=== PATIENT | male | born 2000 | race Two or more races ===

== ENCOUNTER → 2021-03-25 | Outpatient (CLI) | payer BC ==
[~2021-03-25] MED LIST: SODIUM CHLORIDE 0.9% 500 ML IV ONE
[2021-03-25 09:55] VITALS: BP 122/70
[2021-03-25 10:35] VITALS: BP 113/50
[2021-03-25 10:45] VITALS: BP 118/73
[2021-03-25 10:55] VITALS: BP 121/72
[2021-03-25 11:22] VITALS: BP 120/68
== END | disposition home or self-care (01) ==
LOC: CHF HDHVI 09:59
PROVIDERS: ATTEND Internal Medicine
DX: E86.0 Dehydration (principal); K52.9 Noninfective gastroenteritis and colitis, unspecified
CPT/HCPCS: 96360; G0463; J7040